=== PATIENT | female | born 1970 | race Caucasian/White ===

== ENCOUNTER 2016-10-10 05:37 | Day surgery (SDC) | payer OTHER ==
[~2016-10-10] VITALS: Ht 170.2 cm; Wt 95.0 kg
[~2016-10-10 05:37] MED LIST: EMERGEN-C 1,01000 MG PO; PRILOSEC20 MG PO; SINGULAIR10 MG PO
[2016-10-10 06:39] VITALS: BP 113/83
[2016-10-10] MEDS ORDERED: PERCOCET 5/31 TABLET PO (07:29)
[2016-10-10] MEDS ORDERED: MOTRIN800 MG PO (07:29)
[2016-10-10 09:15] VITALS: BP 113/68
[2016-10-10 09:45] VITALS: BP 108/62
== END 2016-10-10 09:49 | disposition home or self-care (01) ==
LOC: SDC 05:37
PROC: 0UBC7ZZ Excision of Cervix, Via Natural or Artificial Opening (ICD-10-PCS; principal; 2016-10-10)
PROC: 0UDB7ZX Extraction of Endometrium, Via Natural or Artificial Opening, Diagnostic (ICD-10-PCS; principal; 2016-10-10)
DX: N87.0 Mild cervical dysplasia (principal); K21.9 Gastro-esophageal reflux disease without esophagitis; J45.909 Unspecified asthma, uncomplicated; E66.9 Obesity, unspecified
CPT/HCPCS: 88305; 88307; J0131; J0330; J1885; J2250; J2765; J3010

== ENCOUNTER 2018-01-29 16:46 | Emergency (ER) | payer OTHER ==
[~2018-01-29] VITALS: Ht 170.2 cm; Wt 97.2 kg
[~2018-01-29 16:46] MED LIST changes: +MOTRIN800 MG PO; +PERCOCET 5/31 TABLET PO
[2018-01-29] MEDS ORDERED: LIDODERM 5% P1 PATCH TD (18:08)
[2018-01-29] MEDS ORDERED: PERCOCET 5/31 TABLET PO (18:08)
[2018-01-29] MEDS ORDERED: VALIUM5 MG PO (18:08)
[2018-01-29 18:42] VITALS: BP 123/75
== END 2018-01-29 18:46 | disposition home or self-care (01) ==
LOC: EME 16:46
DX: S39.012A Strain of muscle, fascia and tendon of lower back, initial encounter (principal); M54.30 Sciatica, unspecified side; M62.838 Other muscle spasm; X50.1XXA Overexertion from prolonged static or awkward postures, initial encounter; Y93.K9 Activity, other involving animal care; Y92.009 Unspecified place in unspecified non-institutional (private) residence as the place of occurrence of the external cause; Z87.891 Personal history of nicotine dependence; Z88.1 Allergy status to other antibiotic agents; Z88.5 Allergy status to narcotic agent; Z88.8 Allergy status to other drugs, medicaments and biological substances
CPT/HCPCS: 72100; 99281; 99284; J3010